=== PATIENT | male | born 1935 | race Caucasian/White ===

== ENCOUNTER 2019-06-10 15:59 | Emergency (ER) | payer OTHER ==
[~2019-06-10] VITALS: Ht 180.3 cm; Wt 68.0 kg
[2019-06-10 17:42] LABS: ABSOLUTE NEUTROPHILS 7.3 thou/uL (1.4-8.2); BASOPHILS 0.6 % (0.0-2.0); EOSINOPHILS 0.7 % (0.0-3.0); HEMATOCRIT 42.2 % (42.0-52.0); HEMOGLOBIN 13.8 gm/dL (14.0-18.0); LYMPHOCYTES 11.5 % (24.0-44.0); MCH 31.9 pg (26.0-34.0); MCHC 32.7 g/dL (28.0-37.0); MCV 97.6 fL (80.0-100.0); MONOCYTES 6.5 % (1.0-8.0); PLATELET COUNT 249 thou/uL (150-400); POLYS 80.7 % (36.0-66.0); RBC 4.33 mil/uL (4.50-6.00); RDW 14.1 % (10.5-14.5)
[2019-06-10 17:49] LABS: ANION GAP 5 mmol/L (7-16); BUN 20 mg/dL (7-18); CALCIUM 9.8 mg/dL (8.5-10.1); CHLORIDE 105 mmol/L (98-107); CO2 32 mmol/L (21-32); CREATININE 1.4 mg/dL (0.7-1.3); GLUCOSE 203 mg/dL (74-106); POTASSIUM 3.7 mmol/L (3.5-5.1); SODIUM 142 mmol/L (136-145)
[2019-06-10 18:00] LABS: ALBUMIN 3.4 g/dL (3.4-5.0); DIRECT BILIRUBIN 0.5 mg/dL (<0.1-0.3); LIPASE 84 U/L (73-393); SGOT 81 U/L (15-37); SGPT 54 U/L (30-65); TOTAL PROTEIN 6.8 g/dL (6.4-8.2); TROPONIN-I <0.06 ng/mL (<0.06)
[2019-06-10] MEDS ORDERED: PRAZOSIN HCL5 MG PO (19:23)
[2019-06-10] MEDS ORDERED: LIPITOR80 MG PO (19:23)
[2019-06-10] MEDS ORDERED: GLUCOPHAGE XR750 MG PO (19:23)
[2019-06-10] MEDS ORDERED: OMEPRAZOLE 20 M20 M1 PO (19:23)
[2019-06-10] MEDS ORDERED: HYDROCHLOROTH12.5 M1 PO (19:23)
[2019-06-10 19:24] LABS: URINE BILIRUBIN NEGATIVE (Negative); URINE BLOOD NEGATIVE (Negative); URINE CLARITY CLEAR; URINE COLOR YELLOW; URINE GLUCOSE-RANDOM* 1+ (Negative); URINE KETONES NEGATIVE (Negative); URINE LEUKOCYTES NEGATIVE (Negative); URINE NITRITE NEGATIVE (Negative); URINE PROTEIN (DIPSTICK) NEGATIVE (Negative)
[2019-06-10 20:29] VITALS: BP 158/79
--- NOTE | 2019-06-11 17:23 | EKG ---
[address] [address] [place] [address] ELECTROCARDIOGRAM REPORT Name: ZAYRA VERMA [id number] ������������������ Admission: 06/10/19 ������������������ Attend Phys: Discharge: 06/10/19 ������������������ Date of : 31 Report #: [id number] ����������������������������������������������������������������� [id number] THIS REPORT FOR: //name// [facility] ED Test Date: 2019-06-10 Test Time: 17:07:23 Pat Name: ZAYRA VERMA Department: Room: Gender: M [place]: [place] : 1935 Requested By: Mary Izquierdo Order Number: [id number] MD: Yunior Odonnell Measurements Intervals [place] Rate: 65 P: 54 HI: 185 QRS: -41 QRSD: 104 T: -1 QT: 427 QTc: 444 Interpretive Statements Sinus rhythm Ventricular premature complex Left anterior fascicular block Abnormal R-wave progression, late transition No previous ECG available for comparison Electronically Signed On 06-11-2019 17:22:57 CDT by Yunior Odonnell [email or web address] ��������������������������������������������� <ELECTRONICALLY SIGNED> ���������������������������������������� By: Yunior Odonnell MD, [facility] ��������������������������������������������� 06/11/19 1722 D: [id number] Yunior Odonnell MD, FACC /EPI
== END 2019-06-10 20:30 | disposition home or self-care (01) ==
LOC: ER 15:59
PROVIDERS: Nurse Practitioner
DX: R10.13 Epigastric pain (principal); R11.2 Nausea with vomiting, unspecified; Z98.890 Other specified postprocedural states